=== PATIENT | male | born 1985 | race Caucasian/White ===

== ENCOUNTER 2017-11-12 18:46 | Emergency (ER) | payer OTHER ==
[2017-11-12 19:13] VITALS: BP 140/86; PULSE 60; TEMP 98.1; BMI 35.0
--- NOTE | 2017-11-12 19:14 | PDOC ---
Rapid Medical Evaluation Chief Complaint: Chest Pain Time Seen by Provider: 11/12/17 19:12 Medical Evaluation: Allergies Allergy/AdvReac Type Severity Reaction Status Date / Time No Known Allergies Allergy Verified 11/12/17 19:10 11/12/17 19:13 Pt with c/o: left sided cp radiating to head , along with dizziness and visual blurriness x 8 days Pt on brief exam: vss, ekg nsr Pt ordered for: cbc, comp, cardiac profile Pt to proceed to the ED Discharge Disposition - Diagnosis Chest pain - Referrals - Patient Instructions - Post Discharge Activity
--- NOTE | 2017-11-12 19:37 | PDOC ---
History of Present Illness - General Chief Complaint: Chest Pain Stated Complaint: CHEST PAIN Time Seen by Provider: 11/12/17 19:12 - History of Present Illness Initial Comments: 11/12/17 19:59 32-year-old male with left-sided chest pressure, headache, dizziness that started at work 8 days ago. Patient currently is on aspirin daily and has been taking aspirin with no relief in symptoms. Patient denies pleuritic chest pain, diaphoresis, nausea, vomiting, diarrhea, abdominal pain,denies URI symptoms, cough. 11/12/17 20:00 Past History - Past Medical History Allergies/Adverse Reactions: Allergies Allergy/AdvReac Type Severity Reaction Status Date / Time No Known Allergies Allergy Verified 11/12/17 19:10 - Suicide/Smoking/Psychosocial Hx Smoking History: Never smoked Hx Alcohol Use: No Drug/Substance Use Hx: No Review of Systems - Review of Systems Able to Perform ROS?: Yes Is the patient limited [place]an proficient: No Constitutional: No: Symptoms Reported, See HPI, Chills, Diaphoresis, Fever, Loss of Appetite, Malaise, Night Sweats, Weakness, Weight Stable, Unintentional Wgt. Loss, Unexplained wgt Loss, Other HEENTM: Yes: Symptoms Reported, See HPI, Eye Pain, Blurred Vision, Tearing, Recent change in vision, Double Vision, Cataracts, Ear Pain, Ocular Prothesis, Ear Discharge, Nose Pain, Nose Congestion, Tinnitus, Nose Bleeding, Hearing Loss , Throat Pain, Throat Swelling, Mouth Pain, Dental Problems, Difficulty Swallowing, Mouth Swelling, Other Cardiac (ROS): Yes: Chest Pain *Physical Exam - Vital Signs Last Vital Signs Temp Pulse Resp BP Pulse Ox 98.1 F 60 14 140/86 100 11/12/17 19:10 11/12/17 19:10 11/12/17 19:10 11/12/17 19:10 11/12/17 19:10 - Physical Exam General Appearance: Yes: Appropriately Dressed Respiratory/Chest: positive: Lungs Clear, Normal Breath Sounds Cardiovascular: positive: Regular Rhythm, Regular Rate Gastrointestinal/Abdominal: positive: Normal Bowel Sounds, Soft Extremity: positive: Normal Capillary Refill, Normal Inspection, Normal Range of Motion Integumentary: positive: Normal Color, Dry, Warm Neurologic: positive: Fully Oriented, Alert, Normal Mood/Affect ED Treatment Course - LABORATORY CBC & Chemistry Diagram: 11/12/17 19:25 11/12/17 19:41 - ADDITIONAL ORDERS Additional order review: Laboratory Results 11/12/17 19:41 Sodium 139 Potassium 4.1 Chloride 106 Carbon Dioxide 28 Anion Gap 5 L BUN 13 Creatinine 0.9 Creat Clearance w eGFR > 60 Random Glucose 98 Calcium 8.4 L Total Bilirubin 0.3 AST 32 ALT 94 H Alkaline Phosphatase 65 Creatine Kinase 251 Creatine Kinase Index 0.6 CK-MB (CK-2) 1.626 Troponin I < 0.02 Total Protein 7.6 Albumin 4.4 11/12/17 19:25 RBC 4.38 MCV 97.1 H MCHC 34.2 RDW 12.8 MPV 9.6 Neutrophils % 49.1 Lymphocytes % 39.9 Monocytes % 8.6 Eosinophils % 1.3 Basophils % 1.1 - RADIOLOGY Radiology Studies Ordered: Category Date Time Status CHEST PA & LAT [RAD] Stat Radiology 11/12/17 19:30 Taken - Medications Given in the ED: ED Medications Discontinued Medications Generic Name Dose Route Start Last Admin Trade Name Ronenq PRN Reason Stop Dose Admin Meclizine HCl 50 mg 11/12/17 21:16 11/12/17 21:25 Antivert - PO 11/12/17 21:17 50 mg ONCE ONE Administration Progress Note - Progress Note Progress Note: A: chest pain P; EKG; NSR CBC CMP chest xray Medical Decision Making - Medical Decision Making 11/12/17 22:31 all discharge instructions given via [facility] plaster foreman. *DC/Admit/Observation/Transfer Diagnosis at time of Disposition: Chest pain Qualifiers: Chest pain type: unspecified Qualified Code(s): R07.9 - Chest pain, unspecified - Discharge Dispostion Disposition: HOME - Referrals Referrals: Matteo Bartholomew MD [Staff Physician] - 24 hours - Patient Instructions Printed Discharge Instructions: DI for Atypical Chest Pain Additional Instructions: the cause of your chest pain is not known at this time.you work up was negative for any acute cardiac problem. please follow up with your doctor as soon as possible. return to the ER if symptoms worsen. you need to see a load mixer as soon as possible return to the ER if symptoms worsen. - Post Discharge Activity Forms/Work/School Notes: Back to Work
[2017-11-12 19:57] LABS: BASO % 1.1 % (0-2.0); EOS % 1.3 % (0-4.5); HEMATOCRIT 42.6 % (35.4-49); HEMOGLOBIN 14.5 GM/dL (11.7-16.9); LYMPH % 39.9 % (8-40); MCH 33.2 pg (25.7-33.7); MCHC 34.2 g/dl (32.0-35.9); MEAN CELL VOLUME 97.1 fl (80-96); MEAN PLT VOLUME 9.6 fl (7.5-11.1); MONO % 8.6 % (3.8-10.2); NEUT % 49.1 % (42.8-82.8); PLATELET COUNT 201 K/MM3 (134-434); RBC 4.38 M/mm3 (4.00-5.60); RDW 12.8 % (11.9-15.9); WHITE BLOOD COUNT 5.9 K/mm3 (4.0-10.0)
[2017-11-12 20:39] LABS: ALBUMIN 4.4 g/dl (3.4-5.0); ANION GAP 5 (8-16); BILIRUBIN,TOTAL 0.3 mg/dL (0.2-1.0); BLOOD UREA NITROGEN 13 mg/dL (7-18); CALCIUM 8.4 mg/dL (8.5-10.1); CHLORIDE 106 mmol/L (98-107); CO2 28 mmol/L (21-32); CREATININE 0.9 mg/dL (0.7-1.3); GLUCOSE,RANDOM 98 mg/dL (74-106); POTASSIUM 4.1 mmol/L (3.5-5.1); SGOT/AST 32 U/L (15-37); SGPT/ALT 94 U/L (12-78); SODIUM 139 mmol/L (136-145); TOT PROT 7.6 g/dl (6.4-8.2)
[2017-11-12 20:41] LABS: ALK PHOS 65 U/L (45-117)
[2017-11-12] MEDS ORDERED: MECLIZINE HCL 25 MG TABLET (FP) PO ONE (21:16)
[2017-11-12] MEDS ORDERED: MECLIZINE HCL 25 MG TABLET (FP) ONE (21:27)
--- NOTE | 2017-11-13 14:50 | EKG ---
Test Reason : Blood Pressure : / mmHG Vent. Rate : 083 BPM Atrial Rate : 083 BPM P-R Int : 164 ms QRS Dur : 096 ms QT Int : 348 ms P-R-T Axes : 027 013 014 degrees QTc Int : 408 ms NORMAL SINUS RHYTHM NORMAL ECG NO PREVIOUS ECGS AVAILABLE Confirmed by MARIO MALIK MD ([id number]) on 11/13/2017 2:50:01 PM Referred By: Confirmed By:MARIO MALIK MD
== END 2017-11-12 22:36 | disposition home or self-care (01) ==
LOC: JER 18:46
DX: R07.9 Chest pain, unspecified (principal); Z79.82 Long term (current) use of aspirin
CPT/HCPCS: 36415; 71046-TC; 80053; 82550; 82553; 84484; 85025; 93005; 93010; 99283-25

== ENCOUNTER 2018-06-08 20:54 | Emergency (ER) | payer OTHER ==
[2018-06-08 20:59] VITALS: BMI 36.3
--- NOTE | 2018-06-08 21:47 | PDOC ---
History of Present Illness - General Chief Complaint: Headache Stated Complaint: HEADACHE - History of Present Illness Initial Comments: 33 -year-old male without comorbidities presents for evaluation of 4 days worth of headache without any associated trauma. He complains of associated nausea and dizziness. He is unsure of any exacerbating or relieving factors all other associated symptoms. 06/08/18 21:45 Past History - Past Medical History Allergies/Adverse Reactions: Allergies Allergy/AdvReac Type Severity Reaction Status Date / Time No Known Allergies Allergy Verified 11/12/17 19:10 Home Medications: Ambulatory Orders NK [No Known Home Medication] 06/08/18 COPD: No - Suicide/Smoking/Psychosocial Hx Smoking History: Never smoked Hx Alcohol Use: No Drug/Substance Use Hx: No Substance Use Type: Alcohol Review of Systems - Review of Systems ABD/GI: Yes: Nausea Neurological: Yes: Headache, Dizziness All Other Systems: Reviewed and Negative *Physical Exam - Vital Signs Last Vital Signs Temp Pulse Resp BP Pulse Ox 98.9 F 82 18 132/78 99 06/08/18 20:57 06/08/18 20:57 06/08/18 20:57 06/08/18 20:57 06/08/18 20:57 - Physical Exam Comments: HEAD: NC/AT EYES: Conjuntiva clearEOMI PERRL Ears: Canals and TM's normal NOSE: No d/c THROAT: Moist mucous membrances, oral pharanx clear, uvula midline NECK: Supple without adenopathy CARDIAC: S1 S2 LUNGS: CTA Full and Equal breath sounds ABDOMEN: Soft NT ND MS: Full ROM in all joints without edema NEUROLOGIC: No gross sensory or motor deficits, NVID SKIN: Normal color and temperature no lesions or rashes 06/08/18 21:46 06/08/18 22:51 ED Treatment Course - RADIOLOGY Radiology Studies Ordered: Category Date Time Status HEAD CT WITHOUT CONTRAST [CT] Stat CT Scan 06/08/18 21:45 Ordered Medical Decision Making - Medical Decision Making 06/08/18 21:46 New-onset headache associated with nausea I'll get a CAT scan today *DC/Admit/Observation/Transfer Diagnosis at time of Disposition: Headache - Referrals - Patient Instructions - Post Discharge Activity
--- NOTE | 2018-06-08 23:35 | PDOC ---
*Physical Exam - Vital Signs Last Vital Signs Temp Pulse Resp BP Pulse Ox 98.9 F 82 18 132/78 99 06/08/18 20:57 06/08/18 20:57 06/08/18 20:57 06/08/18 20:57 06/08/18 20:57 Medical Decision Making - Medical Decision Making 06/08/18 23:33 Endorsed to me to follow the CT scan and disposition. Patient seen and reevaluated headache is unresolved CT below no acute findings Patient Full Name: SUKI FRANCO Patient Accession No: [id number] Patient : [id number] Reason for Exam: headache Referring Physician: BHANU LAMBERT Patient Name: BENIGNO COHN THIS IS A PRELIMINARY REPORT FROM [facility] DATE OF SERVICE: 2018-06-08 21:58:13 IMAGES: 140 EXAM: CT HEAD WITHOUT CONTRAST No acute brain parenchymal abnormality. No hemorrhage, mass or acute territorial infarct. Minimal mucus sphenoid sinuses. Visualized mastoid air cells clear. Individualized dose optimization techniques were used for this CT. THIS DOCUMENT HAS BEEN ELECTRONICALLY SIGNED Natty Gustafson M.D. 06/08/2018 23:16 KEVIN Story. Please call [facility] [phone] ([phone]) with questions. INTERPRETING RADIOLOGIST: Natty Gustafson MD Electronically Signed: Jun 08, 2018 11:16PM EDT 06/08/18 23:46 Treat headache wouldn't IV Toradol, IV fluids, Reglan, Benadryl 06/09/18 01:12 Headache is resolved. I discussed the physical exam findings, ancillary test results and final diagnoses with the patient. I answered all of the patient's questions. The patient was satisfied with the care received and felt comfortable with the discharge plan and treatment plan. The Patient agrees to follow up with the primary care physician within 24-72 hours. *DC/Admit/Observation/Transfer Diagnosis at time of Disposition: Headache Qualifiers: Headache type: unspecified Headache chronicity pattern: unspecified pattern Intractability: not intractable Qualified Code(s): R51 - Headache - Discharge Dispostion Disposition: HOME Condition at time of disposition: Stable - Referrals Referrals: Jd Leyva MD [Staff Physician] - - Patient Instructions Printed Discharge Instructions: DI for Headache Additional Instructions: Your Discharge Instructions: You must call primary care physician within 24 hours to arrange follow-up. Return to the Emergency Department with any new, persistent or worsening symptoms, for fever, chills, SOB, dizziness or any other concerning changes that may occur. Must follow-up with neurology if headache continues. - Post Discharge Activity
[2018-06-08] MEDS ORDERED: KETOROLAC TROMETHAMINE 30 MG/1 ML VIAL IVPUSH ONE (23:48)
[2018-06-08] MEDS ORDERED: METOCLOPRAMIDE HCL INJECTION 10 MG/2 ML VIAL IVPUSH ONE (23:48)
[2018-06-08] MEDS ORDERED: SODIUM CHLORIDE 0.9% 500 ML INFUS.BAG IV ONE (23:48)
[2018-06-09] MEDS ORDERED: KETOROLAC TROMETHAMINE 30 MG/1 ML VIAL ONE (00:06)
[2018-06-09] MEDS ORDERED: METOCLOPRAMIDE HCL INJECTION 10 MG/2 ML VIAL ONE (00:06)
[2018-06-09 01:41] VITALS: BP 130/59; PULSE 69; TEMP 98
== END 2018-06-09 01:41 | disposition home or self-care (01) ==
LOC: JERFT 20:54 → JER 20:54
PROC: 3E033GC Introduction of Other Therapeutic Substance into Peripheral Vein, Percutaneous Approach (ICD-10-PCS; principal; 2018-06-08)
PROC: 3E033GC Introduction of Other Therapeutic Substance into Peripheral Vein, Percutaneous Approach (ICD-10-PCS; 2018-06-08)
PROC: 3E0333Z Introduction of Anti-inflammatory into Peripheral Vein, Percutaneous Approach (ICD-10-PCS; 2018-06-08)
DX: R51 Headache (principal)
CPT/HCPCS: 70450-TC; 99281-25

== ENCOUNTER 2019-08-13 19:12 | Emergency (ER) | payer OTHER ==
[2019-08-13] MEDS ORDERED: METOCLOPRAMIDE HCL INJECTION 10 MG/2 ML VIAL IVPUSH ONE (19:17)
[2019-08-13] MEDS ORDERED: KETOROLAC TROMETHAMINE 30 MG/1 ML VIAL IVPUSH ONE (19:17)
--- NOTE | 2019-08-13 19:17 | PDOC ---
Rapid Medical Evaluation Time Seen by Provider: 08/13/19 19:13 Medical Evaluation: Allergies Allergy/AdvReac Type Severity Reaction Status Date / Time No Known Allergies Allergy Verified 11/12/17 19:10 08/13/19 19:13 I have performed a brief in-person evaluation of this patient. The patient presents with a chief complaint of: headache x 2 weeks, +dizzy and nauseous. denies photophobia but + phonophobia. "feeling bad" denies fever. hx pre diabetes. Pertinent physical exam findings: VSS. pale I have ordered the following: migraine cocktail The patient will proceed to the ED for further evaluation. Discharge Disposition - Diagnosis Headache - Referrals - Patient Instructions - Post Discharge Activity
[2019-08-13] MEDS ORDERED: SODIUM CHLORIDE 0.9% 500 ML INFUS.BAG IV ONE (19:18)
[2019-08-13 19:21] VITALS: BMI 34.5
[2019-08-13] MEDS ORDERED: KETOROLAC TROMETHAMINE 30 MG/1 ML VIAL ONE (21:14)
[2019-08-13] MEDS ORDERED: METOCLOPRAMIDE HCL INJECTION 10 MG/2 ML VIAL ONE (21:14)
--- NOTE | 2019-08-13 22:15 | PDOC ---
History of Present Illness - General Chief Complaint: Headache Stated Complaint: HEADACHE Time Seen by Provider: 08/13/19 19:13 History Source: Patient Exam Limitations: No Limitations - History of Present Illness Initial Comments: 08/13/19 22:11 HISTORY OF PRESENT ILLNESS: This is a 34-year-old male denies medical history of presents to the emergency department for evaluation of headache and lightheadedness over the past 2 weeks. Patient reports the headache started in the front of his head and is slowly expanded to bitemporal region. He says it is not a pain per se but describes it as "like areas in my head." Further clarify patient feels like there is a massive air that is moving inside his skull. He reports feeling intermittently lightheaded. He denies fevers, chills , blurry vision, loss of vision, abdominal pain, nausea or vomiting. No recent travel or sick contacts. PAST MEDICAL HISTORY: Denies past medical history SURGICAL HISTORY: Denies ALLERGIES: No known drug allergies REVIEW OF SYSTEMS General/Constitutional: Denies fever or chills. Denies weakness, weight change. HEENT: Denies change in vision. Denies ear pain or discharge. Denies sore throat. Cardiovascular: Denies chest pain or shortness of breath. Respiratory: Denies cough, wheezing, or hemoptysis. Gastrointestinal: Denies nausea, vomiting, diarrhea or constipation. Denies rectal bleeding. Genitourinary: Denies dysuria, frequency, or change in urination. Musculoskeletal: Denies joint or muscle swelling or pain. Denies neck or back pain. Skin and breasts: Denies rash or easy bruising. Neurologic: See HPI Psychiatric: Denies depression or anxiety. Endocrine: Denies increased thirst. Denies abnormal weight change. Hematologic/Lymphatic: Denies anemia, easy bleeding, or history of blood clots. Allergic/Immunologic: Denies hives or skin allergy. Denies latex allergy. PHYSICAL EXAM General Appearance: Well-appearing, appropriately dressed. No apparent distress , no intoxication. HEENT: EOMI, PERRLA, normal ENT inspection, normal voice, TMs normal, pharynx normal. No conjunctival pallor. No photophobia, scleral icterus. Neck: Supple. Trachea midline. No tenderness, rigidity, carotid bruit, stridor , lymphadenopathy, or thyromegaly. Respiratory/Chest: Lungs CTAB. No shortness of breath, chest tenderness, respiratory distress, accessory muscle use. No crackles, rales, rhonchi, stridor , wheezing, dullness Cardiovascular: RRR. S1, S2. No JVD, murmur, bradycardia, tachycardia. Integumentary: Appropriate color, dry, warm. No cyanosis, erythema, jaundice or rash Neurologic: certified surgical assistant II-XII intact. Fully oriented, alert. Appropriate mood/affect. Motor strength 5/5. No appreciable EOM palsy, facial droop or sensory deficit. Gait is steady. Negative Romberg. Negative Kernig's and Brudzinski signs. Negative Johan-Hallpike. Past History - Past Medical History Allergies/Adverse Reactions: Allergies Allergy/AdvReac Type Severity Reaction Status Date / Time No Known Allergies Allergy Verified 08/13/19 19:17 Home Medications: Ambulatory Orders NK [No Known Home Medication] 06/08/18 COPD: No - Psycho Social/Smoking Cessation Hx Smoking History: Never smoked Hx Alcohol Use: No Drug/Substance Use Hx: No Substance Use Type: Alcohol *Physical Exam - Vital Signs Last Vital Signs Temp Pulse Resp BP Pulse Ox 99.3 F 73 18 135/78 98 08/13/19 19:13 08/13/19 19:13 08/13/19 19:13 08/13/19 19:13 08/13/19 19:13 ED Treatment Course - Medications Given in the ED: ED Medications Discontinued Medications Generic Name Dose Route Start Last Admin Trade Name Freq PRN Reason Stop Dose Admin Diphenhydramine HCl 25 mg 08/13/19 19:17 08/13/19 20:30 Benadryl Injection - IVPUSH 08/13/19 19:18 25 mg ONCE ONE Administration Ketorolac Tromethamine 30 mg 08/13/19 19:17 08/13/19 20:30 Toradol Injection - IVPUSH 08/13/19 19:18 30 mg ONCE ONE Administration Metoclopramide HCl 10 mg 08/13/19 19:17 08/13/19 20:30 Reglan Injection - IVPUSH 08/13/19 19:18 10 mg ONCE ONE Administration Sodium Chloride 1,000 ml 08/13/19 19:18 08/13/19 20:30 Normal Saline - IV 08/13/19 19:19 1,000 ml ONCE ONE Administration Medical Decision Making - Medical Decision Making 08/13/19 22:13 A/P: 34-year-old male with headache and lightheadedness for 2 weeks Patient reports taking Aleve which has had minimal effect on his symptoms. Normal neurologic exam noted. Toradol 30 mg IV Benadryl 25 mg IV Reglan 10 mg IV 1 L normal saline IV bolus Reassess low threshold for imaging if symptoms do not improve with rescue medications. 08/13/19 22:45 EKG sinus rhythm rate of 73. Incomplete right bundle branch block noted. T wave inversions in lead III and V2. Reviewed with Dr. Ulloa who recommends no further intervention symptoms have improved after receiving rescue medications and IV fluids. Patient currently with 0/10 pain denies any nausea or vomiting. Will discharge patient home to follow-up with his primary doctor for continued evaluation. 08/13/19 23:39 Discharge - Discharge Information Problems reviewed: Yes Clinical Impression/Diagnosis: Headache Qualifiers: Headache type: unspecified Headache chronicity pattern: unspecified pattern Intractability: not intractable Qualified Code(s): R51 - Headache Condition: Fair Disposition: HOME - Admission No - Follow up/Referral - Patient Discharge Instructions Additional Instructions: Take Tylenol or Motrin as needed for headaches. Make an appointment with your primary doctor for reevaluation within the next week. Return to emergency department for worsening headache, blurry vision, dizziness , nausea, vomiting or any other concerns. Thank you very much for for choosing us to provide emergent health care needs. - Post Discharge Activity
--- NOTE | 2019-08-13 22:52 | PDOC ---
*Physical Exam - Vital Signs Last Vital Signs Temp Pulse Resp BP Pulse Ox 99.3 F 73 18 135/78 98 08/13/19 19:13 08/13/19 19:13 08/13/19 19:13 08/13/19 19:13 08/13/19 19:13 ED Treatment Course - Medications Given in the ED: ED Medications Discontinued Medications Generic Name Dose Route Start Last Admin Trade Name Constanza PRN Reason Stop Dose Admin Diphenhydramine HCl 25 mg 08/13/19 19:17 08/13/19 20:30 Benadryl Injection - IVPUSH 08/13/19 19:18 25 mg ONCE ONE Administration Ketorolac Tromethamine 30 mg 08/13/19 19:17 08/13/19 20:30 Toradol Injection - IVPUSH 08/13/19 19:18 30 mg ONCE ONE Administration Metoclopramide HCl 10 mg 08/13/19 19:17 08/13/19 20:30 Reglan Injection - IVPUSH 08/13/19 19:18 10 mg ONCE ONE Administration Sodium Chloride 1,000 ml 08/13/19 19:18 08/13/19 20:30 Normal Saline - IV 08/13/19 19:19 1,000 ml ONCE ONE Administration Medical Decision Making - Medical Decision Making 08/13/19 22:52 Case reviewed, agree with assessment and plan Discharge - Discharge Information Problems reviewed: Yes Clinical Impression/Diagnosis: Headache Qualifiers: Headache type: unspecified Headache chronicity pattern: unspecified pattern Intractability: not intractable Qualified Code(s): R51 - Headache Condition: Fair Disposition: HOME - Follow up/Referral - Patient Discharge Instructions Additional Instructions: Take Tylenol or Motrin as needed for headaches. Make an appointment with your primary doctor for reevaluation within the next week. Return to emergency department for worsening headache, blurry vision, dizziness , nausea, vomiting or any other concerns. Thank you very much for for choosing us to provide emergent health care needs. - Post Discharge Activity
[2019-08-14 00:26] VITALS: TEMP 98.1
[2019-08-14 00:29] VITALS: BP 124/71; PULSE 51
--- NOTE | 2019-08-14 14:30 | EKG ---
Test Reason : Blood Pressure : / mmHG Vent. Rate : 047 BPM Atrial Rate : 047 BPM P-R Int : 174 ms QRS Dur : 104 ms QT Int : 446 ms P-R-T Axes : 038 015 008 degrees QTc Int : 394 ms SINUS BRADYCARDIA INCOMPLETE RIGHT BUNDLE BRANCH BLOCK WHEN COMPARED WITH ECG OF 12-NOV-2017 18:55, VENT. RATE HAS DECREASED BY 36 BPM Confirmed by ANGI ELENA MD ([id number]) on 08/14/2019 2:30:03 PM Referred By: Confirmed By:ANGI ELENA MD
== END 2019-08-14 00:05 | disposition home or self-care (01) ==
LOC: JER 19:12
PROC: 3E033GC Introduction of Other Therapeutic Substance into Peripheral Vein, Percutaneous Approach (ICD-10-PCS; principal; 2019-08-13)
PROC: 3E033NZ Introduction of Analgesics, Hypnotics, Sedatives into Peripheral Vein, Percutaneous Approach (ICD-10-PCS; 2019-08-13)
PROC: 3E0333Z Introduction of Anti-inflammatory into Peripheral Vein, Percutaneous Approach (ICD-10-PCS; 2019-08-13)
DX: R51 Headache (principal)
CPT/HCPCS: 93005; 93010; 99282-25